=== PATIENT | female | born 1975 | race Caucasian/White ===

== ENCOUNTER 2017-07-05 11:29 | Emergency (ER) | payer MEDICAID ==
[~2017-07-05] VITALS: Ht 175.3 cm; Wt 86.0 kg
[~2017-07-05 11:29] MED LIST: CALC-255 PO; DIAZ10TA PO; DIAZ2TAB PO; FLAX100013 PO; MORP30CA15 PO; OMEG1CAP34 PO; ONDA4SOL2; OXYC10TA6 PO; OXYC20TA2 PO; PREN-1 PO
[2017-07-05 11:37] VITALS: BP 176/104
[2017-07-05] MEDS ORDERED: HYDROmorphone 1 MG/ML, 1ML ONE (12:13)
[2017-07-05] MEDS ORDERED: HYDROmorphone 1 MG/ML, 1ML IM ONE (12:30)
== END 2017-07-05 12:28 | disposition home or self-care (01) ==
LOC: ED 12:06
DX: M54.2 Cervicalgia (principal); G89.29 Other chronic pain; Z88.8 Allergy status to other drugs, medicaments and biological substances; Z91.040 Latex allergy status
CPT/HCPCS: 99281

== ENCOUNTER 2017-08-06 18:58 | Emergency (ER) | payer MEDICAID ==
[~2017-08-06] VITALS: Ht 175.3 cm; Wt 84.1 kg
[2017-08-06] MEDS ORDERED: OXYcodone/APAP 5/325MG TABLET ONE (19:55)
[2017-08-06] MEDS ORDERED: OXYcodone/APAP 5/325MG TABLET PO ONE (20:00)
[2017-08-06 20:33] VITALS: BP 138/67
== END 2017-08-06 20:35 | disposition home or self-care (01) ==
LOC: ED 20:05
DX: S93.491A Sprain of other ligament of right ankle, initial encounter (principal); S93.431A Sprain of tibiofibular ligament of right ankle, initial encounter; I10 Essential (primary) hypertension; X58.XXXA Exposure to other specified factors, initial encounter; Y93.89 Activity, other specified; Y92.89 Other specified places as the place of occurrence of the external cause; Y99.8 Other external cause status
CPT/HCPCS: 99284

== ENCOUNTER → 2017-11-10 | Outpatient (CLI) | payer MEDICAID | LOC: CFH 14:50 | PROVIDERS: ATTEND Anesthesiology | DX: M47.22 Other spondylosis with radiculopathy, cervical region (principal); M48.02 Spinal stenosis, cervical region; M51.26 Other intervertebral disc displacement, lumbar region; M51.36 Other intervertebral disc degeneration, lumbar region; Z98.890 Other specified postprocedural states | CPT/HCPCS: 72141; 72148 ==

== ENCOUNTER 2017-11-27 15:56 | Emergency (ER) | payer MEDICAID ==
[~2017-11-27] VITALS: Ht 175.3 cm; Wt 89.0 kg
[2017-11-27 16:11] VITALS: BP 166/103
[2017-11-27] MEDS ORDERED: HYDROmorphone 1 MG/ML, 1ML IM STA (16:38)
[2017-11-27] MEDS ORDERED: HYDROmorphone 2 MG/ML, 1ML ONE (16:46)
[2017-11-27] MEDS ORDERED: KETOROLAC 30 MG/1 ML ONE (16:47)
[2017-11-27] MEDS ORDERED: KETOROLAC 60 MG/2 ML IM ONE (17:00)
== END 2017-11-27 17:08 | disposition home or self-care (01) ==
LOC: ED 17:01
DX: M54.12 Radiculopathy, cervical region (principal); M54.14 Radiculopathy, thoracic region; G89.29 Other chronic pain; M51.34 Other intervertebral disc degeneration, thoracic region; I10 Essential (primary) hypertension; J45.909 Unspecified asthma, uncomplicated
CPT/HCPCS: 96372; 99284; J1170; J1885; J7512

== ENCOUNTER 2018-06-26 05:14 | Emergency (ER) | payer MEDICAID ==
[~2018-06-26] VITALS: Ht 175.3 cm; Wt 86.3 kg
[~2018-06-26 05:14] MED LIST changes: +LEVO25TA4 PO
[2018-06-26] MEDS ORDERED: KETOROLAC 30 MG/1 ML IVPush ONE (05:30)
[2018-06-26] MEDS ORDERED: LORazepam 2 MG/ML, 1ML IVPush ONE (05:30)
[2018-06-26] MEDS ORDERED: SODIUM CHLORIDE FLUSH 10ML SYR IVF ONE (05:30)
[2018-06-26] MEDS ORDERED: KETOROLAC 30 MG/1 ML ONE (05:36)
[2018-06-26] MEDS ORDERED: LORazepam 2 MG/ML, 1ML ONE (05:36)
[2018-06-26 05:46] LABS: BASOPHILS # (AUTO) 0.09 x10^3/uL (0-0.1); BASOPHILS % (AUTO) 1 % (0-1); EOSINOPHILS # (AUTO) 0.72 x10^3/uL (0-0.4); EOSINOPHILS % (AUTO) 7 % (1-7); LYMPHOCYTES # (AUTO) 4.08 x10^3/uL (1-3.4); LYMPHOCYTES % (AUTO) 42 % (22-44); MD NO; MEAN CORPUSCULAR HEMOGLOBIN 30.7 pg (27.0-34.8); MEAN CORPUSCULAR HGB CONC 33.8 g/dL (32.4-35.8); MEAN CORPUSCULAR VOLUME 90.9 fL (80-100); MEAN PLATELET VOLUME 8.9 fL (7.4-10.4); MONOCYTES # (AUTO) 0.76 x10^3/uL (0.2-0.8); MONOCYTES % (AUTO) 8 % (2-9); NEUTROPHILS # (AUTO) 4.18 x10^3/uL (1.8-6.8); NEUTROPHILS % (AUTO) 43 % (42-75); PLATELET COUNT 280 x10^3/uL (130-400); RED BLOOD COUNT 5.07 x10^6/uL (3.82-5.3); RED CELL DISTRIBUTION WIDTH 13.4 % (9.6-15.2)
[2018-06-26 05:57] LABS: ALBUMIN 3.6 g/dL (3.4-5.0); ANION GAP 10 mmol/L (5-15); CALCIUM 8.5 mg/dL (8.5-10.1); CHLORIDE 107 mmol/L (98-107)
[2018-06-26] MEDS ORDERED: SODIUM CHLORIDE 0.9% 1,000ML IV ONE (06:00)
[2018-06-26 06:12] LABS: MICROSCOPIC INDICATED
[2018-06-26 06:18] LABS: CULTURE INDICATED? YES
[2018-06-26 08:00] VITALS: BP 145/89
== END 2018-06-26 09:23 | disposition home or self-care (01) ==
LOC: ED 09:11
DX: N13.2 Hydronephrosis with renal and ureteral calculous obstruction (principal); G89.29 Other chronic pain; M54.5 Low back pain; F17.210 Nicotine dependence, cigarettes, uncomplicated; I10 Essential (primary) hypertension
CPT/HCPCS: 36415; 71045; 74176; 80048; 81001; 82040; 85025; 85379; 87086; 93005; 96374; 96375; 99285; J1885; J2060; J7030

== ENCOUNTER 2018-11-29 12:39 | Outpatient (CLI) | payer MEDICAID | END 2018-11-29 23:59 | disposition home or self-care (01) | LOC: CFH 12:39 | PROVIDERS: ATTEND Physician Assistant Surgical | DX: M48.02 Spinal stenosis, cervical region (principal) | CPT/HCPCS: 72040 ==

== ENCOUNTER → 2019-02-08 | Outpatient (CLI) | payer MEDICAID | END | disposition home or self-care (01) | LOC: CFH 12:20 | PROVIDERS: ATTEND Physician Assistant Surgical | DX: M54.2 Cervicalgia (principal) | CPT/HCPCS: 72040 ==

== ENCOUNTER 2019-04-18 00:28 | Emergency (ER) | payer MEDICAID ==
[~2019-04-18] VITALS: Ht 175.3 cm; Wt 85.0 kg
[2019-04-18] MEDS ORDERED: OXYcodone/APAP 10/325MG TABLET ONE (00:56)
[2019-04-18] MEDS ORDERED: OXYcodone/APAP 10/325MG TABLET PO ONE (01:00)
[2019-04-18 02:00] VITALS: BP 141/80
== END 2019-04-18 02:01 | disposition home or self-care (01) ==
LOC: ED 01:35
DX: M54.6 Pain in thoracic spine (principal); E03.9 Hypothyroidism, unspecified; I10 Essential (primary) hypertension; J45.909 Unspecified asthma, uncomplicated
CPT/HCPCS: 99282

== ENCOUNTER 2019-06-06 06:27 | Emergency (ER) | payer MEDICAID ==
[~2019-06-06] VITALS: Ht 175.3 cm; Wt 84.8 kg
[2019-06-06 06:29] VITALS: BP 158/114
== END 2019-06-06 07:47 | disposition home or self-care (01) ==
LOC: ED 07:40
DX: M54.12 Radiculopathy, cervical region (principal); E03.9 Hypothyroidism, unspecified; I10 Essential (primary) hypertension; J45.909 Unspecified asthma, uncomplicated; Z90.89 Acquired absence of other organs
CPT/HCPCS: 96372; 99283; J1885; J7512

== ENCOUNTER 2019-11-13 10:44 | Emergency (ER) | payer MEDICAID ==
[~2019-11-13] VITALS: Ht 175.3 cm; Wt 87.9 kg
[2019-11-13] MEDS ORDERED: HYDROmorphone 1 MG/ML, 1ML INJ IM ONE (11:30)
[2019-11-13] MEDS ORDERED: HYDROmorphone 1 MG/ML, 1ML INJ ONE (11:35)
--- NOTE | 2019-11-13 11:35 | NUR ---
THIS IS A 43 YO F W/ C/O LEFT SHOULDER PAIN X3 WEEKS AFTER WORKING WITH PHYSICAL THERAPY. PATIENT DENIES INJURY. 10 PAIN WITH MOVEMENT. PATIENT CURRENTLY HYPERTENSIVE. RESPIRATIONS ARE EVEN AND UNLABORED. PATIENT IS IN NO ACUTE DISTRESS. PATIENT IS RESTING ON GURNEY WITH CALL LIGHT IN REACH. DENIES FURTHER NEEDS AT THIS TIME.
--- NOTE | 2019-11-13 11:42 | NUR ---
PATIENT MEDICATED PER EMAR.
[2019-11-13 12:37] VITALS: BP 154/97
--- NOTE | 2019-11-13 12:37 | NUR ---
TECH IN ROOM FOR EKG.
--- NOTE | 2019-11-13 13:35 | NUR ---
Patient given discharge instructions and they have confirmed that they understand the instructions. Patient ambulatory with steady gait.
== END 2019-11-13 13:36 | disposition home or self-care (01) ==
LOC: ED 12:22
DX: M75.92 Shoulder lesion, unspecified, left shoulder (principal); I10 Essential (primary) hypertension
CPT/HCPCS: 73030; 93005; 96372; 99283; J1170

== ENCOUNTER 2020-07-10 03:27 | Emergency (ER) | payer MEDICAID ==
[~2020-07-10] VITALS: Ht 175.3 cm; Wt 94.0 kg
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
[2020-07-10] MEDS ORDERED: ALBUTEROL/IPRATROPIUM 2.5MG/0.5MG, 3 ML NPPB ONE (04:00)
[2020-07-10] MEDS ORDERED: HYDROmorphone 1 MG/ML, 1ML INJ IM ONE (04:00)
[2020-07-10] MEDS ORDERED: HYDROmorphone 1 MG/ML, 1ML INJ ONE (04:22)
[2020-07-10] MEDS ORDERED: ALBUTEROL/IPRATROPIUM 2.5MG/0.5MG, 3 ML ONE (04:22)
[2020-07-10 04:53] VITALS: BP 125/73
== END 2020-07-10 04:55 | disposition home or self-care (01) ==
LOC: ED 04:01
DX: J45.21 Mild intermittent asthma with (acute) exacerbation (principal); M54.2 Cervicalgia; G89.29 Other chronic pain; R06.02 Shortness of breath; R00.0 Tachycardia, unspecified; I10 Essential (primary) hypertension; E03.9 Hypothyroidism, unspecified; Z87.891 Personal history of nicotine dependence
CPT/HCPCS: 71045; 94640; 96372; 99283; J1170; J7512

== ENCOUNTER → 2020-10-01 | Outpatient (CLI) | payer MEDICAID | END | disposition home or self-care (01) | LOC: CFH 14:29 | PROVIDERS: ATTEND Obstetrics & Gynecology Maternal & Fetal Medicine | DX: Z12.31 Encounter for screening mammogram for malignant neoplasm of breast (principal) | CPT/HCPCS: 77067 ==

== ENCOUNTER 2020-10-03 14:44 | Emergency (ER) | payer MEDICAID ==
[~2020-10-03] VITALS: Ht 175.3 cm; Wt 93.6 kg
--- NOTE | 2020-10-03 15:58 | NUR ---
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
--- NOTE | 2020-10-03 16:26 | NUR ---
PT C/O NECK PAIN AT THE BASE OF HER SKULL, 06/11. PT HAS CHRONIC PAIN THAT IS MANAGED BY PAIN DR AND NEUROSURGEON. PT HAS NAUSEA FROM THE PAIN. PT DENIES VOMITING OR DIZZINESS. NEURO INTACT.
[2020-10-03] MEDS ORDERED: ONDANSETRON ODT 4 MG PO ONE (16:30)
[2020-10-03] MEDS ORDERED: HYDROmorphone 2 MG/ML, 1ML IM ONE (16:30)
[2020-10-03] MEDS ORDERED: METHOCARBAMOL 750 MG TABLET PO ONE (16:30)
[2020-10-03] MEDS ORDERED: ONDANSETRON ODT 4 MG ONE (16:32)
[2020-10-03] MEDS ORDERED: HYDROmorphone 1 MG/ML, 1ML INJ ONE (16:32)
[2020-10-03] MEDS ORDERED: METHOCARBAMOL 750 MG TABLET ONE (16:32)
[2020-10-03 17:12] VITALS: BP 157/100
== END 2020-10-03 17:22 | disposition home or self-care (01) ==
LOC: ED 16:49
DX: G89.29 Other chronic pain (principal); M54.2 Cervicalgia; M48.02 Spinal stenosis, cervical region; R51.9 Headache, unspecified; Z87.891 Personal history of nicotine dependence
CPT/HCPCS: 96372; 99283; J1170; Q0162